=== PATIENT | female | born 1935 | race Asian ===

== ENCOUNTER 2017-05-02 11:39 | Inpatient (IN) | payer OTHER ==
[~2017-05-02] VITALS: Ht 157.5 cm; Wt 44.0 kg
--- NOTE | 2017-05-02 11:39 | NUR ---
PATIENT BIB BLS TO ER BED 5.
[2017-05-02] MEDS ORDERED: NACL 0.9% 1,000 ML IV ONE (11:45)
--- NOTE | 2017-05-02 11:45 | NUR ---
PATIENT BIBA FROM BOARD AND CARE IN [place]. PER EMS STS ROOMMATE CALLED EMS FOR PT WAS FOAMING AT THE MOUTH. PT NOT FOAMING AT THIS TIME. PT AAOX1. PER EMS,; PT ON HOSPICE CARE, PACEMAKER WITH CARDIAC HX AND BILAT BREAST IMPLANTS NOTED. NO FURTHER HX RECEIVED EXCEPT WRITTEN LIST OF MEDS AND NO DNR RETRIEVED PER EMS. WILL CALL BOARD AND CARE FOR MORE INFO.PT ON 02 AT 2 LPM;PT LOOKS WEAK;NO N/V NOTED; SKIN IS PINK/WARM/DRY; AAOX4 WITH EVEN AND STEADY GAIT; NO FEVER, CP AT THIS TIME; PATIENT STATES PAIN OF 0/10 AT THIS TIME; PATIENT POSITIONED FOR COMFORT; HOB ELEVATED; BEDRAILS UP X2; BED DOWN.ALL MONITORS IN PLACED.
[2017-05-02 11:59] VITALS: BP 133/79
[2017-05-02 12:15] LABS: HEMATOCRIT 38.3 % (36-48); HEMOGLOBIN 12.3 g/dL (12.0-16.0); MEAN CORPUSCULAR HEMOGLOBIN 30 pg (27-31); MEAN CORPUSCULAR HGB CONC 32 g/dL (33-37); MEAN CORPUSCULAR VOLUME 93 fL (80-94); PLATELET COUNT (AUTO) 268 K/uL (140-450); RED CELL DISTRIBUTION WIDTH 13.6 % (11.6-13.7); WHITE BLOOD COUNT (AUTO) 20.5 K/uL (4.8-10.8)
--- NOTE | 2017-05-02 12:15 | NUR ---
, NUMBER RECEIVED FROM [facility] PROVIDER PORTAL REGARDING PT. NO ANSWER. PT CONSIDERED FULL CODE AT THIS TIME.
--- NOTE | 2017-05-02 12:15 | NUR ---
PATIENT BEING EVALUATED BY DR. SALAS.
[2017-05-02 12:24] LABS: LYMPHOCYTES % (MANUAL) 6 % (20-46); MONOCYTES % (MANUAL) 2 % (5-12); NEUTROPHILS % (MANUAL) 92 (43-65)
[2017-05-02] MEDS ORDERED: ATI.5 PO (12:26)
[2017-05-02] MEDS ORDERED: DIGO0.1296 PO (12:26)
[2017-05-02] MEDS ORDERED: CLOP75TA PO (12:26)
[2017-05-02] MEDS ORDERED: ISOS60TE PO (12:26)
[2017-05-02] MEDS ORDERED: ACET-3102 PO (12:26)
[2017-05-02] MEDS ORDERED: ZOLP5TAB1 PO (12:26)
[2017-05-02] MEDS ORDERED: DONE5TAB2 PO (12:26)
[2017-05-02] MEDS ORDERED: [UNRECOGNIZED DRUG - CODE] PO (12:26)
[2017-05-02] MEDS ORDERED: VALS80TA2 PO (12:26)
[2017-05-02] MEDS ORDERED: AMLO5TAB PO (12:26)
[2017-05-02] MEDS ORDERED: ATOR20TA PO (12:26)
[2017-05-02] MEDS ORDERED: RISP0.251 PO (12:26)
[2017-05-02] MEDS ORDERED: CARV25TA PO (12:26)
[2017-05-02 12:32] LABS: APPEARANCE,URINE SL CLOUDY (CLEAR); BILIRUBIN,URINE 1+ (NEGATIVE); BLOOD, URINE TRACE-L (NEGATIVE); COLOR,URINE YELLOW (YELLOW); LEUKOCYTE ESTERASE ,URINE NEGATIVE (NEGATIVE); NITRITE, URINE NEGATIVE (NEGATIVE); PROTEIN,URINE 1+ (NEGATIVE); UGLUCOSE 1+ (NEGATIVE); UROBILINOGEN,URINE 0.2 EU/dL (0.2 - 1)
[2017-05-02 12:33] LABS: INR 1.1 (0.8-1.2); PARTIAL THROMBOPLASTIN TIME 23.8 secs (22-35.6); PROTHROMBIN TIME 11.3 secs (10.8-13.4)
[2017-05-02 12:34] LABS: LACTIC ACID 1.5 mmol/L (0.4-2.0)
[2017-05-02 12:37] LABS: ALANINE AMINOTRANSFERASE 40 U/L (14-59); ALBUMIN 2.3 g/dL (3.4-5.0); ALKALINE PHOSPHATASE 99 U/L (46-116); ANION GAP 13.2 (8-16); ASPARTATE AMINOTRANSFERASE 35 U/L (15-37); CALCIUM 9.9 mg/dL (8.5-10.1); CARBON DIOXIDE 27.6 mmol/L (21-32); CHLORIDE 109 mmol/L (98-107); CREATININE 1.4 mg/dL (0.6-1.3); GLUCOSE 188 mg/dL (74-106); POTASSIUM 4.8 mmol/L (3.5-5.1); SODIUM SERUM 145 mmol/L (136-145); TOTAL BILIRUBIN 0.7 mg/dL (0.0-1.0)
[2017-05-02 12:43] LABS: UREA NITROGEN, BLOOD 64 mg/dL (7-18)
--- NOTE | 2017-05-02 12:45 | NUR ---
PT CAREGIVER MELVIN LEVIN, . HX DEMENTIA, PACEMAKER, BILAT IMPLANTS, CARDIAC HX, HTN. PER PCG NO DNR AT THIS TIME, PER MELVIN PT TO BE SENT TO SNF R/T PT UNDER ADULT PROTECTIVE SERVICES UNDER SOCIAL WORK NEERAJ . PER MELVIN, MOLDER HELPER WENT TO SEE PT, CALLED EMS R/T "PT DID NOT LOOK GOOD."
[2017-05-02 12:52] LABS: BACTERIA,URINE None Seen /HPF (None Seen); ICTOTEST NEGATIVE (NEGATIVE); RBC,URINE 0-5 (RARE) /HPF (0-5); SQUAMOUS EPITHELIAL CELL,UR 0-3 (FEW) /LPF (0-3 (FEW)); WBC,URINE 0-5 (RARE) /HPF (0-5)
[2017-05-02] MEDS ORDERED: PIPERACILLIN/TAZOBACTAM 3.375 GM in DEXTROSE 5% 50 ML IV ONE (13:10)
[2017-05-02] MEDS ORDERED: NACL 0.9% IV ONE (13:10)
[2017-05-02] MEDS ORDERED: ASPIRIN 81 MG TAB.CHEW PO ONE (13:10)
[2017-05-02] MEDS ORDERED: ONDANSETRON 4 MG/2 ML VIAL IM/IVP PRN (13:30)
[2017-05-02] MEDS ORDERED: DOCUSATE SODIUM 100 MG GELCAP PO PRN (13:30)
[2017-05-02] MEDS ORDERED: MORPHINE SULFATE 2 MG/ML SYR IVP PRN (13:30)
[2017-05-02] MEDS ORDERED: ACETAMINOPHEN 325 MG TAB PO PRN (13:30)
[2017-05-02] MEDS ORDERED: HYDROcodone/APAP 7.5/325 MG 1 TAB PO PRN (13:30)
--- NOTE | 2017-05-02 13:31 | NUR ---
LAB CALLED THEY WANT TO CHANGE DOSAGE OF ZOSYN TO 2.25MG BECAUSE CREATININE IS 1.4;CHARGE NURSE NOTIFIED;SHE WILL TALKED TO DR SALAS.
[2017-05-02] MEDS ORDERED: PIPER/TAZO 3.375GM/D5W PREMIX 50 ML IV SCH (13:45)
--- NOTE | 2017-05-02 14:01 | NUR ---
Patient will be admitted to care of DR SCHULZ. Admited to TELE. Will go to [facility]. Belongings list completed. Report to ALEXA HAYWARD.
[2017-05-02 14:28] LABS: CHOL/HDL RATIO 3.5 (1-4.5); FREE T4 (FREE THYROXINE) 1.39 ng/dL (0.76-1.46); MAGNESIUM 2.5 mg/dL (1.8-2.4); PHOSPHORUS 3.4 mg/dL (2.5-4.9); THYROID STIMULATING HORMONE 0.21 uIU/mL (0.34-3.74)
--- NOTE | 2017-05-02 14:30 | NUR ---
PT BROUGHT IN FROM ER IN [facility], PT SLEEPING, AROUSES BY VOICE, OX1 -2, PT ABLE TO STATE HER NAME BIRTHDAY AND THAT SHE IS "IN THE HOSPITAL", RESP EVEN UNLABORED ON 2L NC, BS DIMINISHED, + WEAK COUGHS, PT WITH SACRAL WOUND WITH SOME NECROTIC TISSUE, HEALING SORE TO RIGHT HIP, HEALING ABRASION TO R GRANDA, WILL TAKE PHOTO, VSS, PT ORIENTED TO ROOM AND FLOOR, PT WITH R AC 22G PIV NOT FLUSHING, INFILTRATED WHEN FLUSHED, WILL START ANOTHER, CHRISTOPHER INPLACE, DRAINING WELL.
[2017-05-02 14:35] VITALS: BP 148/72
[2017-05-02] MEDS: NACL 0.9% 1,000 ML IV SCH (14:45)
[2017-05-02] MEDS ORDERED: LORazepam 0.5 MG TAB PO PRN (14:55)
[2017-05-02] MEDS ORDERED: CLOPIDOGREL 75 MG TAB PO SCH (15:59)
[2017-05-02] MEDS ORDERED: CARVEDILOL 12.5 MG TAB PO SCH (15:59)
[2017-05-02 16:00] VITALS: BP 144/70
[2017-05-02] MEDS ORDERED: VALSARTAN 80 MG TAB PO SCH (16:04)
--- NOTE | 2017-05-02 16:33 | NUR ---
PREPARATION DEPARTMENT SUPERVISOR MELVIN LEVIN AT BEDSIDE, DR DOW TO BEDSIDE
[2017-05-02] MEDS ORDERED: LACTOBACILLUS RHAMNOSUS GG 1 EACH CAP PO SCH (17:01)
[2017-05-02] MEDS ORDERED: DIGOXIN 0.125 MG TAB PO SCH (17:26)
[2017-05-02] MEDS: PIPER/TAZO 2.25GM/D5W PREMIX 50 ML IV SCH (18:00)
--- NOTE | 2017-05-02 18:10 | NUR ---
PT SITTING UP RESTING COMFORTABLY, PT GUERO PO MEDS CRUSHED WITH PUDDING, PT GUERO CLEAR LIQ WELL WITHOUT PROBLEM.
--- NOTE | 2017-05-02 19:20 | NUR ---
REPORT GIVEN TO ASSEMBLER CATERPILLAR SPIDER RN, PT IN STABLE CONDITION.
--- NOTE | 2017-05-02 19:30 | NUR ---
RECEIVED REPORTS FROM DAY RN, PATIENT RESTING IN BED, AWAKE ALERT ORIENTED X2. NO S/S OF ACUTE DISTRESS NOTED, IV PATENT AND INTACT, INFUSING NORMAL SALINE AT 60ML/HR. NOTED CHRISTOPHER IN PLACE DRAINING YELLOW CLEAR URINE BY GRAVITY. PATIENT IS ABLE TO FOLLOW SIMPLE COMMENDS, PLAN OF CARE DISCUSSED, CALL LIGHT WITHIN REACH, SAFETY MEASURE ENSURED, WILL CONTINUE TO MONITOR.
[2017-05-02 20:00] VITALS: BP 122/68
--- NOTE | 2017-05-02 20:25 | NUR ---
RCV'D ORDER TO INDUCE SPUTUM. PROCEDURE EXPLAINED TO PT WHO IS AWAKE AND ALERT. PT AGREES AND VERBALIZED UNDERSTANDING. INDUCED USING SODIUM CHLORIDE IN HHN. GAVE PT THE SPUTUM CUP AND ASKED PT TO GIVE SAMPLE. PT VERBALIZED UNDERSTANDING BUT UNABLE AT THIS TIME. CUP AT BEDSIDE. ALEXA ESPINOSA.
[2017-05-02] MEDS ORDERED: hePARIN / DEXT 5% PREMIX 250 ML IV SCH ×2 (21:05→21:30)
[2017-05-02] MEDS ORDERED: HEPARIN PER PHARMACY MC PRN (21:05)
[2017-05-02] MEDS: DONEPEZIL 10 MG TAB PO SCH (21:22)
[2017-05-02] MEDS: ZOLPIDEM 5 MG TAB PO SCH (21:22)
[2017-05-02] MEDS: HALOPERIDOL 1 MG TAB PO SCH (21:23)
[2017-05-02] MEDS: ISOSORBIDE MONONITRATE 30 MG TABER PO SCH (21:24)
[2017-05-02] MEDS: ATORVASTATIN 20 MG TAB PO SCH (21:24)
[2017-05-02] MEDS: risperiDONE 1 MG TAB PO SCH (21:24)
--- NOTE | 2017-05-02 23:00 | NUR ---
STARTED HEPARIN DRIP ORDERED
--- NOTE | 2017-05-02 23:05 | NUR ---
HEPARIN BOLUS 2400 UNITS GIVEN, AND STARTED HEPARIN DRIP 500 UNITS/HR. Addendum: 05/03/17 at 0811 by Kelsea Jackson RN JAK MODI
[2017-05-03] VITALS: BP 121/71
[2017-05-03 00:34] LABS: HEMATOCRIT 31.4 % (36-48); MEAN CORPUSCULAR HEMOGLOBIN 30 pg (27-31); MEAN CORPUSCULAR HGB CONC 32 g/dL (33-37); MEAN CORPUSCULAR VOLUME 93 fL (80-94); PLATELET COUNT (AUTO) 217 K/uL (140-450); RED BLOOD CELL COUNT(AUTO) 3.37 MIL/uL (4.20-5.40); RED CELL DISTRIBUTION WIDTH 13.6 % (11.6-13.7)
[2017-05-03] MEDS: PIPER/TAZO 2.25GM/D5W PREMIX 50 ML IV SCH ×4 (01:24→17:13)
[2017-05-03 01:45] LABS: LYMPHOCYTES % (MANUAL) 5 % (20-46); MONOCYTES % (MANUAL) 1 % (5-12); NEUTROPHILS % (MANUAL) 94 (43-65)
[2017-05-03 04:00] VITALS: BP 128/65
--- NOTE | 2017-05-03 04:00 | NUR ---
PATIENT ASLEEP IN BED, EASY TO AROUSE. VITAL SIGNS TAKEN, WITHIN NORMAL RANGE. CALL LIGHT WITHIN REACH, SAFETY MEASURE ENSURED, WILL CONTINUE TO MONITOR.
[2017-05-03] MEDS: NACL 0.9% 1,000 ML IV SCH ×2 (05:25→22:48)
--- NOTE | 2017-05-03 05:53 | NUR ---
PATIENT WAS TRYING TO GET OUT OF THE BED, ASSISTED PATIENT BACK TO BED. SAFETY MEASURE ENSURED, WILL CONTINUE TO MONITOR.
[2017-05-03 06:08] LABS: ANION GAP 12.4 (8-16); CARBON DIOXIDE 27.6 mmol/L (21-32); CHLORIDE 109 mmol/L (98-107); CREATININE 1.3 mg/dL (0.6-1.3); GLUCOSE 211 mg/dL (74-106); SODIUM SERUM 145 mmol/L (136-145); UREA NITROGEN, BLOOD 54 mg/dL (7-18)
--- NOTE | 2017-05-03 06:30 | NUR ---
PATIENT ASLEEP IN BED, NO S/S OF ACUTE DISTRESS NOTED, RESPIRATION EVEN AND UNLABORED, SAFETY MEASURE ENSURED WILL CONTINUE TO MONITOR
[2017-05-03 06:57] LABS: HEMATOCRIT 29.9 % (36-48); HEMOGLOBIN 9.7 g/dL (12.0-16.0); MEAN CORPUSCULAR HEMOGLOBIN 30 pg (27-31); MEAN CORPUSCULAR HGB CONC 33 g/dL (33-37); MEAN CORPUSCULAR VOLUME 93 fL (80-94); PLATELET COUNT (AUTO) 208 K/uL (140-450); RED BLOOD CELL COUNT(AUTO) 3.22 MIL/uL (4.20-5.40); RED CELL DISTRIBUTION WIDTH 13.4 % (11.6-13.7); WHITE BLOOD COUNT (AUTO) 19.9 K/uL (4.8-10.8)
[2017-05-03 07:14] LABS: MAGNESIUM 2.1 mg/dL (1.8-2.4); PHOSPHORUS 2.3 mg/dL (2.5-4.9)
[2017-05-03 07:15] LABS: BAND % (MANUAL) 0 % (0-8); BASOPHILS % (MANUAL) 0 % (0-2); EOSINOPHILS % (MANUAL) 1 % (0-4); LYMPHOCYTES % (MANUAL) 11 % (20-46); MONOCYTES % (MANUAL) 2 % (5-12); NEUTROPHILS % (MANUAL) 86 (43-65); PLATELET ESTIMATE ADEQUATE
[2017-05-03 07:25] LABS: INR 1.1 (0.8-1.2); PARTIAL THROMBOPLASTIN TIME 48.3 secs (22-35.6); PROTHROMBIN TIME 11.6 secs (10.8-13.4)
--- NOTE | 2017-05-03 07:25 | NUR ---
ENDORSED PLAN OF CARE TO DAY RN. PATIENT IS IN STABLE CONDITION.
--- NOTE | 2017-05-03 07:26 | NUR ---
PT AWAKE AND ALERT, NO SIGNS OF ACUTE DISTRESS. ON OXYGEN 2L VIA NC. BOWEL SOUNDS ACTIVE IN ALL 4 QUADRANTS. SACRAL WOUND COVERED WITH DRY DRESSING AND RIGHT ILIAC CREST CLOSED WOUND OPEN TO AIR. BEDBOUND. BOWEL AND BLADDER INCONTINENCE WITH CHRISTOPHER CATHETER IN PLACE. NO COMPLAINT OF PAIN AT THIS TIME, FLACC SCORE IS 0. BED IN LOW POSITION WITH BILATERAL HALF SIDE RAILS UP, CALL LIGHT WITHIN REACH.
[2017-05-03 08:00] VITALS: BP 125/60
--- NOTE | 2017-05-03 08:03 | NUR ---
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
[2017-05-03] MEDS: LACTOBACILLUS RHAMNOSUS GG 1 EACH CAP PO SCH (09:42)
[2017-05-03] MEDS: ISOSORBIDE MONONITRATE 30 MG TABER PO SCH ×2 (09:42→20:59)
[2017-05-03] MEDS: VALSARTAN 80 MG TAB PO SCH (09:43)
[2017-05-03] MEDS: risperiDONE 1 MG TAB PO SCH ×2 (09:43→21:00)
[2017-05-03] MEDS: DIGOXIN 0.125 MG TAB PO SCH (09:43)
[2017-05-03] MEDS: HALOPERIDOL 1 MG TAB PO SCH ×2 (09:43→20:59)
[2017-05-03] MEDS: CLOPIDOGREL 75 MG TAB PO SCH (09:43)
[2017-05-03] MEDS: amLODIPine 5 MG TAB PO SCH (09:44)
[2017-05-03] MEDS: CARVEDILOL 12.5 MG TAB PO SCH ×2 (09:44→17:12)
[2017-05-03] MEDS: CHLORHEXADINE GLUC 2% CLOTH TP SCH (09:45)
[2017-05-03 09:46] LABS: T4 (THYROXINE) 5.1 ug/dL (4.5 - 12.0)
[2017-05-03 12:00] VITALS: BP 118/64
[2017-05-03 13:13] LABS: INR 1.1 (0.8-1.2); PROTHROMBIN TIME 11.3 secs (10.8-13.4)
[2017-05-03 16:00] VITALS: BP 109/61
--- NOTE | 2017-05-03 19:40 | NUR ---
RECEIVED REPORTS FROM DAY RN. PATIENT RESTING IN BED. PATIENT AWAKE, ORIENTED X1. NO S/S OF ACUTE DISTRESS NOTED. IV PATENT AND INTACT, INFUSING NORMAL SALINE AT 60ML/HR. NOTED CHRISTOPHER IN PLACE AND DRAINING URINE BY GRAVITY. BED ALARM ON, AND FALL PRECAUTION MAINTAINED PER HOSPITAL POLICY, CALL LIGHT WITHIN REACH, SAFETY MEASURE ENSURED, WILL CONTINUE TO MONITOR.
[2017-05-03 20:00] VITALS: BP 118/73
[2017-05-03] MEDS: DONEPEZIL 10 MG TAB PO SCH (20:58)
[2017-05-03] MEDS: ZOLPIDEM 5 MG TAB PO SCH (20:58)
[2017-05-03] MEDS: ATORVASTATIN 20 MG TAB PO SCH (21:00)
--- NOTE | 2017-05-03 21:36 | NUR ---
PM MEDICATIONS GIVEN, PATIENT TOLERATED WELL. REPOSITION PATIENT. CALL LIGHT WITHIN REACH, SAFETY MEASURE ENSURED, WILL CONTINUE TO MONITOR.
[2017-05-04] VITALS: BP 122/71
[2017-05-04] MEDS: PIPER/TAZO 2.25GM/D5W PREMIX 50 ML IV SCH ×5 (00:05→23:41)
--- NOTE | 2017-05-04 00:10 | NUR ---
NOTED LT AC IV WAS ON BED, NO ACTIVE BLEEDING AT IV SITE, IV CATHETER TIP INTACT. IV ON THE LT WRIST WAS NOT PATENT EITHER, IV WAS D/C, IV CATHETER TIP INTACT. CHARGE NURSE STARTED NEW IV ON LEFT UPPER ARM. NORMAL SALINE INFUSING AT 60ML/HR.
--- NOTE | 2017-05-04 02:00 | NUR ---
PATIENT WAS TRYING TO PULL THE IV OUT. EDUCATED PATIENT THE IMPORTANCE OF HAVING IV FLUIDS. PATIENT STILL TRIED TO PULL THE IV OUT. OLIVIATENS PUT ON. CHARGE NURSE AWARE, WILL CONTINUE TO MONITOR.
--- NOTE | 2017-05-04 03:29 | NUR ---
PATIENT ASLEEP IN BED, NO S/S OF ACUTE DISTRESS NOTED, RESPIRATION EVEN AND UNLABORED, CALL LIGHT WITHIN REACH, SAFETY MEASURE ENSURED, WILL CONTINUE TO MONITOR.
[2017-05-04 04:00] VITALS: BP 126/72
--- NOTE | 2017-05-04 05:38 | NUR ---
ZOSYN STARTED, REPOSITIONED PATIENT, PATIENT RESTING IN BED, SAFETY MEASURE ENSURED, WILL CONTINUE TO MONITOR.
[2017-05-04 06:44] LABS: HEMATOCRIT 24.2 % (36-48); MEAN CORPUSCULAR HEMOGLOBIN 31 pg (27-31); MEAN CORPUSCULAR HGB CONC 33 g/dL (33-37); MEAN CORPUSCULAR VOLUME 93 fL (80-94); PLATELET COUNT (AUTO) 192 K/uL (140-450); RED BLOOD CELL COUNT(AUTO) 2.61 MIL/uL (4.20-5.40); RED CELL DISTRIBUTION WIDTH 13.5 % (11.6-13.7); WHITE BLOOD COUNT (AUTO) 18.7 K/uL (4.8-10.8)
--- NOTE | 2017-05-04 06:55 | NUR ---
PATIENT HAS BEEN SCREENED AND CATEGORIZED HIGH NUTRITION RISK. PATIENT WILL BE SEEN WITHIN 1-2 DAYS OF ADMISSION. 05/03/17-05/04/17 JORGE SQUIRES MS, RDN
[2017-05-04 06:58] LABS: BAND % (MANUAL) 3 % (0-8); EOSINOPHILS % (MANUAL) 2 % (0-4); LYMPHOCYTES % (MANUAL) 3 % (20-46); MONOCYTES % (MANUAL) 2 % (5-12); NEUTROPHILS % (MANUAL) 90 (43-65)
[2017-05-04 07:03] LABS: ANION GAP 9.6 (8-16); CALCIUM 8.5 mg/dL (8.5-10.1); CARBON DIOXIDE 27.9 mmol/L (21-32); CHLORIDE 110 mmol/L (98-107); CREATININE 1.1 mg/dL (0.6-1.3); GLUCOSE 183 mg/dL (74-106); POTASSIUM 3.5 mmol/L (3.5-5.1); SODIUM SERUM 144 mmol/L (136-145); UREA NITROGEN, BLOOD 38 mg/dL (7-18)
--- NOTE | 2017-05-04 07:19 | NUR ---
ENDORSED PLAN OF CARE TO DAY RN, PATIENT IS IN STABLE CONDITION.
--- NOTE | 2017-05-04 07:20 | NUR ---
PT AWAKE, ALERT AND CONFUSED, NO SIGNS OF ACUTE DISTRESS. ON 2L OXYGEN VIA NC. BOWEL SOUNDS ACTIVE IN ALL 4 QUADRANTS. BOWEL AND BLADDER INCONTINENCE. OPEN WOUND ON SACRUM COVERED WITH DRESSING, CLOSED WOUND ON RT ILIAC HIP OPEN TO AIR, AND BRUISES ON BILATERAL ARMS OPEN TO AIR. BEDBOUND. PATIENT DENIES PAIN AT THIS TIME, ALTHOUGH CONFUSED, FLACC SCORE IS 0. RE-ORIENTED PATIENT TO HOSPITAL AND TO UNIT, PT UNABLE TO COMPREHEND. BED IN LOW POSITION WITH BILATERAL HALF SIDE RAILS UP, CALL LIGHT WITHIN REACH.
[2017-05-04 08:00] VITALS: BP 129/67
[2017-05-04] MEDS: amLODIPine 5 MG TAB PO SCH (09:23)
[2017-05-04] MEDS: LACTOBACILLUS RHAMNOSUS GG 1 EACH CAP PO SCH (09:23)
[2017-05-04] MEDS: risperiDONE 1 MG TAB PO SCH ×2 (09:23→20:58)
[2017-05-04] MEDS: ISOSORBIDE MONONITRATE 30 MG TABER PO SCH ×2 (09:23→20:58)
[2017-05-04] MEDS: VALSARTAN 80 MG TAB PO SCH (09:23)
[2017-05-04] MEDS: CARVEDILOL 12.5 MG TAB PO SCH ×2 (09:24→17:53)
[2017-05-04] MEDS: DIGOXIN 0.125 MG TAB PO SCH (09:24)
[2017-05-04] MEDS: HALOPERIDOL 1 MG TAB PO SCH ×2 (09:24→20:57)
[2017-05-04] MEDS: CLOPIDOGREL 75 MG TAB PO SCH (09:24)
[2017-05-04] MEDS: CHLORHEXADINE GLUC 2% CLOTH TP SCH (09:25)
[2017-05-04] MEDS: MUPIROCIN 2% OINT 22 GM TUBE TP SCH (09:25)
--- NOTE | 2017-05-04 11:00 | NUR ---
CHANGED PATIENT DRESSING ON SACRAL WOUND, MODERATE AMOUNT OF SEROSANGUINOUS DISCHARGE.
--- NOTE | 2017-05-04 11:59 | NUR ---
05/04/17 RD INITIAL ASSESSMENT COMPLETED PLEASE REFER TO NUTRITION ASSESSMENT UNDER CARE ACTIVITY FOR ESTIMATED NUTRITIONAL NEEDS. RD RECOMMENDATIONS: 1. CONTINUE ON CURRENT DIET TOLERATED. 2. RECOMMEND ADDING PROSOURCE 1 PKT WITH ALL MEALS TID. 3. RDN TO PROVIDE HEALTH SHAKE WITH ALL MEALS TID. 4. RD WILL F/U 2-3 DAYS; HIGH RISK. JORGE SQUIRES, MS, RDN
[2017-05-04 12:00] VITALS: BP 121/72
--- NOTE | 2017-05-04 13:16 | NUR ---
PATIENT UNABLE TO PUSH OUT BOWEL MOVEMENT, DIGITALLY DISIMPACTED PATIENT AND ADMINISTERED COLACE PRN ORDERED, WILL CONTINUE TO MONITOR.
[2017-05-04] MEDS: NACL 0.9% 1,000 ML IV SCH (15:28)
[2017-05-04 16:00] VITALS: BP 122/67
--- NOTE | 2017-05-04 16:48 | NUR ---
REPOSITIONED PATIENT AND D/C'D MITTENS, PT SLEEPING. WILL CONTINUE TO MONITOR.
[2017-05-04] MEDS ORDERED: DEXTROSE 50% 50 ML SYR IVP PRN (18:00)
--- NOTE | 2017-05-04 19:15 | NUR ---
PT AWAKE AND ALERT, NO SIGNS OF ACUTE DISTRESS. ENDORSED TO SCHOOL PLANT CONSULTANT NURSE FOR CONTINUITY OF CARE.
--- NOTE | 2017-05-04 19:20 | NUR ---
RECEIVED REPORTS FROM DAY RN. PATIENT RESTING IN BED. PATIENT AWAKE, ORIENTED X1. NO S/S OF ACUTE DISTRESS NOTED. PATIENT IS ON O2 NC 2L. IV PATENT AND INTACT, INFUSING NORMAL SALINE AT 60ML/HR. NOTED CHRISTOPHER IN PLACE AND DRAINING URINE BY GRAVITY. BED ALARM ON, AND FALL PRECAUTION MAINTAINED PER HOSPITAL POLICY, CALL LIGHT WITHIN REACH, SAFETY MEASURE ENSURED, WILL CONTINUE TO MONITOR.
[2017-05-04 20:00] VITALS: BP 115/63
[2017-05-04] MEDS: BLOOD GLUCOSE MONITORING 1 DEV DEV FS SCH (20:54)
[2017-05-04] MEDS: ZOLPIDEM 5 MG TAB PO SCH (20:56)
[2017-05-04] MEDS: DONEPEZIL 10 MG TAB PO SCH (20:57)
[2017-05-04] MEDS: ATORVASTATIN 20 MG TAB PO SCH (20:58)
[2017-05-04] MEDS: INSULIN LISPRO SLIDING SCALE 100 UNITS/ML VIAL SUBQ PRN (21:10)
--- NOTE | 2017-05-04 21:21 | NUR ---
PM MEDICATIONS GIVEN, PATIENT TOLERATED WELL. REPOSITIONED PATIENT. CALL LIGHT WITHIN REACH, SAFETY MEASURE ENSURED, WOUND BED MACHINE IN PLACE. WILL CONTINUE TO MONITOR.
--- NOTE | 2017-05-04 22:05 | NUR ---
PATIENT TRYING TO GET OUT OF THE BED, REPOSITIONED PATIENT BACK TO THE CENTER OF THE BED. SAFETY MEASURE ENSURED, WILL CONTINUE TO MONITOR.
[2017-05-05] VITALS: BP 116/65
--- NOTE | 2017-05-05 00:22 | NUR ---
PATIENT ASLEEP IN BED, NO S/S OF ACUTE DISTRESS NOTED, VITAL SIGNS WITHIN NORMAL RANGE. WILL CONTINUE TO MONITOR.
--- NOTE | 2017-05-05 02:40 | NUR ---
HEARD PATIENT YELLING FROM HER ROOM, "BEDPAN, I WANT BEDPAN." OFFERED PATIENT BEDPAN, BUT PATIENT WAS NOT ABLE TO PUSH THE STOOL OUT, PATIENT WAS CRYING AND STATED,"HURTS." NOTED PATIENT HAD FECAL IMPACTION, DIGITAL REMOVED HARD STOOL, SOFT STOOL CAME OUT AFTER THE HARD STOOL. PATIENT RESTING IN BED, NO S/S OF ACUTE DISTRESS NOTED, CALL LIGHT WITHIN REACH, WILL CONTINUE TO MONITOR.
[2017-05-05 04:00] VITALS: BP 103/54
--- NOTE | 2017-05-05 04:00 | NUR ---
VITAL SIGN TAKEN, WITHIN NORMAL RANGE. WILL CONTINUE TO MONITOR.
[2017-05-05] MEDS: PIPER/TAZO 2.25GM/D5W PREMIX 50 ML IV SCH ×3 (05:22→17:52)
[2017-05-05] MEDS: NACL 0.9% 1,000 ML IV SCH (05:23)
[2017-05-05 05:48] LABS: HEMATOCRIT 25.5 % (36-48); HEMOGLOBIN 8.5 g/dL (12.0-16.0); MEAN CORPUSCULAR HEMOGLOBIN 31 pg (27-31); MEAN CORPUSCULAR HGB CONC 34 g/dL (33-37); MEAN CORPUSCULAR VOLUME 91 fL (80-94); PLATELET COUNT (AUTO) 198 K/uL (140-450); RED BLOOD CELL COUNT(AUTO) 2.79 MIL/uL (4.20-5.40); RED CELL DISTRIBUTION WIDTH 13.2 % (11.6-13.7)
[2017-05-05 06:06] LABS: ANION GAP 9.2 (8-16); CALCIUM 8.5 mg/dL (8.5-10.1); CARBON DIOXIDE 28.3 mmol/L (21-32); CHLORIDE 106 mmol/L (98-107); CREATININE 1.1 mg/dL (0.6-1.3); GLUCOSE 170 mg/dL (74-106); POTASSIUM 3.5 mmol/L (3.5-5.1); SODIUM SERUM 140 mmol/L (136-145); UREA NITROGEN, BLOOD 30 mg/dL (7-18)
[2017-05-05 06:16] LABS: MAGNESIUM 1.5 mg/dL (1.8-2.4); PHOSPHORUS 1.3 mg/dL (2.5-4.9)
[2017-05-05 06:21] LABS: BAND % (MANUAL) 4 % (0-8); LYMPHOCYTES % (MANUAL) 7 % (20-46); MONOCYTES % (MANUAL) 3 % (5-12); NEUTROPHILS % (MANUAL) 86 (43-65)
--- NOTE | 2017-05-05 06:45 | NUR ---
PATIENT ASLEEP IN BED, NO S/S OF ACUTE DISTRESS NOTED, RESPIRATION EVEN AND UNLABORED, WILL CONTINUE TO MONITOR.
[2017-05-05] MEDS: BLOOD GLUCOSE MONITORING 1 DEV DEV FS SCH ×4 (06:56→21:19)
[2017-05-05] MEDS: INSULIN LISPRO SLIDING SCALE 100 UNITS/ML VIAL SUBQ PRN (06:57)
--- NOTE | 2017-05-05 07:30 | NUR ---
ENDORSED PLAN OF CARE TO DAY RN, PATIENT IS IN STABLE CONDITION.
--- NOTE | 2017-05-05 07:31 | NUR ---
PATIENT AWAKE AND ALERT, NO SIGNS OF ACUTE DISTRESS. BOWEL SOUNDS ACTIVE IN ALL 4 QUADRANTS. WOUND ON SACRUM COVERED WITH CLEAN DRESSING, CLOSED WOUND ON RT ILIAC OPEN TO AIR AND BRUISING ON ARMS COMFORT FILLER. BEDBOUND. PATIENT DENIES PAIN, FLACC SCORE = 0. RE-ORIENTED PATIENT TO HOSPITAL AND TO UNIT, PT UNABLE TO COMPREHEND ALTHOUGH VERBALIZES UNDERSTANDING. BED IN LOW POSITION WITH BILATERAL HALF SIDE RAILS UP, CALL LIGHT WITHIN REACH.
[2017-05-05 08:00] VITALS: BP 124/60
[2017-05-05] MEDS ORDERED: MAG SULF 2000 MG/WATER PREMIX 50 ML IV SCH (09:01)
[2017-05-05 09:04] LABS: HEMOGLOBIN A1C 7.6 % (4.8-5.6)
--- NOTE | 2017-05-05 09:48 | NUR ---
SS NOTE: I SPOKE WITH KENJI PICKARD FROM [facility] ([phone]). SHE STATED THAT PT DOES NOT HAVE ANY FAMILY INVOLVED IN HER CARE. SHE ALSO STATED THAT PT IS NOT SAFE TO RETURN TO THE ROOM AND BOARD SINCE PT HAS DECLINED SINCE JANUARY 2017.
[2017-05-05] MEDS: ISOSORBIDE MONONITRATE 30 MG TABER PO SCH ×2 (09:50→21:23)
[2017-05-05] MEDS: risperiDONE 1 MG TAB PO SCH ×2 (09:50→21:22)
[2017-05-05] MEDS: VALSARTAN 80 MG TAB PO SCH (09:50)
[2017-05-05] MEDS: CARVEDILOL 12.5 MG TAB PO SCH ×2 (09:51→17:52)
[2017-05-05] MEDS: DIGOXIN 0.125 MG TAB PO SCH (09:51)
[2017-05-05] MEDS: LACTOBACILLUS RHAMNOSUS GG 1 EACH CAP PO SCH (09:51)
[2017-05-05] MEDS: HALOPERIDOL 1 MG TAB PO SCH ×2 (09:51→21:23)
[2017-05-05] MEDS: amLODIPine 5 MG TAB PO SCH (09:51)
[2017-05-05] MEDS: MUPIROCIN 2% OINT 22 GM TUBE TP SCH (09:53)
[2017-05-05] MEDS: CHLORHEXADINE GLUC 2% CLOTH TP SCH (09:54)
--- NOTE | 2017-05-05 10:00 | NUR ---
PATIENT EXTREMELY GROGGY, AROUSABLE TO STERNAL RUB. SPOKE WITH DR DOW ASKED FOR BS CHECK. BS WAS 114. NO NEW ORDERS AT THIS TIME. WILL CONTINUE TO MONITOR PATIENT.
[2017-05-05] MEDS ORDERED: ALBUTEROL SULFATE/IPRATROPIU 3 ML SOL IH PRN (10:10)
--- NOTE | 2017-05-05 11:51 | NUR ---
PT NOTES TIME [phone] SPOKE W/ RN "TIM" REGARDING PATIENT. PER RN HOLD TX D/T PATIENT HAS LOW BLOOD PRESSURE 78/40. RN STATED PATIENT WILL BE GIVEN BOLUS PER ORDER OF THE DOCTOR. WILL HOLD TX PER RN & PRIMARY THERAPIST NOTIFIED. PVE Addendum: 05/05/17 at 1419 by Sp Banuelos PT PHYSICAL THERAPY CO-SIGN The Physical Therapy Progress Notes documented by Developer Analyst have been reviewed. Reviewed/Co-Signed by: Sp Banuelos PT Documentation Done by: FOSTER GREER QUALITY AUDIT REPRESENTATIVE ON MEDICAL HOLD FOR TODAY D/T HYPOTENSION WILL CHECK CHART TOMORROW IF PT MEDICAL CLEARED FOR P.T.
[2017-05-05 12:00] VITALS: BP 112/60
--- NOTE | 2017-05-05 12:30 | NUR ---
SS NOTE: PER ASTRID FROM [facility] ([phone]), THEY CAN ACCEPT PT AND PT CAN GO TO ROOM 103B UNDER DR. Wade DOMINGO WHEN PT IS READY FOR DISCHARGE.
[2017-05-05 16:00] VITALS: BP 105/58
[2017-05-05] MEDS: ALBUTEROL SULFATE/IPRATROPIU 3 ML SOL IH SCH (19:08)
--- NOTE | 2017-05-05 19:35 | NUR ---
PT AWAKE AND ALERT, NO SIGNS OF ACUTE DISTRESS. ENDORSED TO RACE STEWARD NURSE FOR CONTINUITY OF CARE.
--- NOTE | 2017-05-05 20:21 | NUR ---
RECEIVED REPORT FROM CHARGE NURSE AWAKE AND ALERT. NO RESTLESSNESS NOTED. TOTAL CARE. CALL LIGHT WITH IN REACH. NO SOB. CHRISTOPHER CATHETER IN PLACE AND DX. OF DEHYDRATION AND LEUKOCYTOSIS. NEEDS WILL BE ANTICIPATED AND WILL BE TURNED Q 2H.
[2017-05-05 20:44] VITALS: BP 112/73
[2017-05-05] MEDS: DONEPEZIL 10 MG TAB PO SCH (21:22)
[2017-05-05] MEDS: ZOLPIDEM 5 MG TAB PO SCH (21:22)
[2017-05-05] MEDS: ATORVASTATIN 20 MG TAB PO SCH (21:23)
--- NOTE | 2017-05-05 22:00 | NUR ---
TURNED TO SIDES . TOTAL CARE. NO SOB. FLACC 0-. PILLOW SUPPORT TO PRESSURE AREAS. TELEMETRY MONITORING. NO COUGHING NOTED. HOB SLIGHTLY HIGH FOR MAXIMUM LUNG EXPANSION. CHRISTOPHER CATHETER DRAINING WELL WITH YELLOW URINE.
--- NOTE | 2017-05-06 | NUR ---
TURNED TO SIDES BY CNAS. PILLLOW SUPPORT TO PRESSURE AREAS. NO SOB. FLACC 0-TELEMETRY MONITORING.
[2017-05-06] MEDS: PIPER/TAZO 2.25GM/D5W PREMIX 50 ML IV SCH ×3 (00:33→11:25)
[2017-05-06] MEDS: NACL 0.9% 1,000 ML IV SCH (00:34)
[2017-05-06 00:59] VITALS: BP 122/58
--- NOTE | 2017-05-06 02:00 | NUR ---
TURNED TO SIDES Q 2H. NEEDS ANTICIPATED AND WILL BE MET. FLACC 0- SLEEPING. OPENS EYES WHEN TOUCHED.
[2017-05-06 04:28] VITALS: BP 112/64
--- NOTE | 2017-05-06 04:33 | NUR ---
TURNED Q 2H. PILLOW SUPPORT TO PRESSURE AREAS. TOTAL CARE. NO SOB. ON 02 AT 2LPM/NC. AFEBRILE.
[2017-05-06] MEDS: BLOOD GLUCOSE MONITORING 1 DEV DEV FS SCH ×2 (05:37→11:34)
[2017-05-06] MEDS: INSULIN LISPRO SLIDING SCALE 100 UNITS/ML VIAL SUBQ PRN ×2 (05:40→12:10)
[2017-05-06 07:09] LABS: BASOPHILS % (AUTO) 0.3 % (0.0-2.0); EOSINOPHILS # (AUTO) 0.4 K/uL (0-0.4); EOSINOPHILS % (AUTO) 2.6 % (0.0-4.0); HEMATOCRIT 22.8 % (36-48); HEMOGLOBIN 7.4 g/dL (12.0-16.0); LYMPHOCYTES % (AUTO) 6.8 % (20.5-51.1); MEAN CORPUSCULAR HEMOGLOBIN 30 pg (27-31); MEAN CORPUSCULAR HGB CONC 33 g/dL (33-37); MEAN CORPUSCULAR VOLUME 91 fL (80-94); MONOCYTES # (AUTO) 0.7 K/uL (0.8-1.0); MONOCYTES % (AUTO) 4.8 % (1.7-9.3); NEUTROPHILS # (AUTO) 12.7 K/uL (1.8-7.7); NEUTROPHILS % (AUTO) 85.5 % (42.2-75.2); PLATELET COUNT (AUTO) 179 K/uL (140-450); RED CELL DISTRIBUTION WIDTH 12.9 % (11.6-13.7)
[2017-05-06] MEDS: ALBUTEROL SULFATE/IPRATROPIU 3 ML SOL IH SCH (07:13)
--- NOTE | 2017-05-06 07:15 | NUR ---
RECEIVED REPORT FROM NIGHT NURSE, PT IS AAOX1, ON ROOM AIR, IV TO LEFT UPPER ARM 20G INFUSING WELL, SACRAL WOUND , RIGHT HIP SCAB, CHRISTOPHER IN PLACE WITH CLEAR YELLOW URINE, INITIAL ASSESSMENT COMPLETED, REVIEWED PLAN OF CARE WITH PT REENFORCEMENT NEEDED, ALL SAFETY PRECAUTIONS MET. CALL LIGHT WITHIN REACH. WILL CONTINUE TO MONITOR.
[2017-05-06 07:16] LABS: CALCIUM 7.9 mg/dL (8.5-10.1); CARBON DIOXIDE 27.3 mmol/L (21-32); CHLORIDE 107 mmol/L (98-107); CREATININE 1.1 mg/dL (0.6-1.3); GLUCOSE 183 mg/dL (74-106); POTASSIUM 3.3 mmol/L (3.5-5.1); SODIUM SERUM 139 mmol/L (136-145); UREA NITROGEN, BLOOD 30 mg/dL (7-18)
[2017-05-06 07:19] LABS: WHITE BLOOD COUNT (AUTO) 14.8 K/uL (4.8-10.8)
[2017-05-06 07:20] LABS: MAGNESIUM 1.9 mg/dL (1.8-2.4); PHOSPHORUS 2.3 mg/dL (2.5-4.9)
[2017-05-06 08:00] VITALS: BP 118/64
[2017-05-06] MEDS: CARVEDILOL 12.5 MG TAB PO SCH (08:00)
[2017-05-06] MEDS ORDERED: KCL 20 MEQ/WATER INJ PREMIX 100 ML IV SCH (09:00)
[2017-05-06] MEDS: amLODIPine 5 MG TAB PO SCH (09:00)
[2017-05-06] MEDS: HALOPERIDOL 1 MG TAB PO SCH (09:18)
[2017-05-06] MEDS: DIGOXIN 0.125 MG TAB PO SCH (09:18)
[2017-05-06] MEDS: LACTOBACILLUS RHAMNOSUS GG 1 EACH CAP PO SCH (09:18)
[2017-05-06] MEDS: ISOSORBIDE MONONITRATE 30 MG TABER PO SCH (09:19)
[2017-05-06] MEDS: VALSARTAN 80 MG TAB PO SCH (09:19)
[2017-05-06] MEDS: risperiDONE 1 MG TAB PO SCH (09:19)
[2017-05-06] MEDS: MUPIROCIN 2% OINT 22 GM TUBE TP SCH (09:20)
[2017-05-06] MEDS: CHLORHEXADINE GLUC 2% CLOTH TP SCH (09:20)
--- NOTE | 2017-05-06 09:25 | NUR ---
DUE MEDICATION GIVEN WITH APPLE SAUCE, PT TOLERATED WELL. ALL NEED MET WILL CONTINUE TO MONITOR.
[2017-05-06] MEDS ORDERED: PIPE50SO5 IV (10:08)
[2017-05-06] MEDS ORDERED: LACT10CA PO ×2 (10:15→10:16)
--- NOTE | 2017-05-06 11:34 | NUR ---
DUE MEDICATION GIVEN. PT CURRENTLY AWAKE RESTING IN BED. ALL SAFETY PRECAUTION MET. WILL CONTINUE TO MONITOR
[2017-05-06 12:18] LABS: BASOPHILS # (AUTO) 0.1 K/uL (0.00-0.22); BASOPHILS % (AUTO) 0.4 % (0.0-2.0); EOSINOPHILS # (AUTO) 0.4 K/uL (0-0.4); EOSINOPHILS % (AUTO) 2.5 % (0.0-4.0); HEMATOCRIT 25.1 % (36-48); HEMOGLOBIN 8.2 g/dL (12.0-16.0); LYMPHOCYTES # (AUTO) 0.9 K/uL (2.5-16.5); LYMPHOCYTES % (AUTO) 5.7 % (20.5-51.1); MEAN CORPUSCULAR HEMOGLOBIN 30 pg (27-31); MEAN CORPUSCULAR HGB CONC 33 g/dL (33-37); MEAN CORPUSCULAR VOLUME 92 fL (80-94); MONOCYTES # (AUTO) 0.6 K/uL (0.8-1.0); MONOCYTES % (AUTO) 3.9 % (1.7-9.3); NEUTROPHILS # (AUTO) 14.4 K/uL (1.8-7.7); NEUTROPHILS % (AUTO) 87.5 % (42.2-75.2); PLATELET COUNT (AUTO) 205 K/uL (140-450); RED BLOOD CELL COUNT(AUTO) 2.74 MIL/uL (4.20-5.40)
[2017-05-06 12:27] VITALS: BP 126/71
--- NOTE | 2017-05-06 12:45 | NUR ---
UPDATED PT ON TRANSFER PLAN TO [facility]. REENFORCEMENT NEEDED.
[2017-05-06 12:48] LABS: WHITE BLOOD COUNT (AUTO) 16.4 K/uL (4.8-10.8)
--- NOTE | 2017-05-06 13:14 | NUR ---
REPORT GIVEN TO CARROL AT [facility].
--- NOTE | 2017-05-06 13:16 | NUR ---
1235 CALL PLACED TO [facility] [phone] AND SPOKE WITH KIA AND SET UP [facility]UR[facility] TRANSPORT FOR PT GOING TO [facility]. [facility] AUTH NUMBER [id number]. INKER TIME WILL BE 1:30PM. NURSE CLARK INFORMED OF INKER TIME.
--- NOTE | 2017-05-06 13:35 | NUR ---
PT UNABLE TO SIGN DISCHARGE PAPERWORK, DISCHARGE EDUCATION GIVEN, WOUND PICTURES TAKE, ID BANDS REMOVED. ALL PERSONAL BELONGINGS WITH PT.
--- NOTE | 2017-05-06 13:46 | NUR ---
[facility] IN TO [facility] PT, PT TRANSFERRED TO [place] IN STABLE CONDITION.
--- NOTE | 2017-05-06 16:18 | NUR ---
PHYSICAL THERAPY CO-SIGN The Physical Therapy Progress Notes documented by Manager Audio have been reviewed. Reviewed/Co-Signed by: Sarah Paul PT Documentation Done by:FOSTER GREER STUDIO MUSICIAN POC REVIEWED W/ STUDIO MUSICIAN; WILL BENEFIT W/ P.T. AFTER ACUTE STAY. Addendum: 05/06/17 at 1618 by Sarah Paul PT Amended: Links added.
== END 2017-05-06 13:45 | DRG 177 ==
LOC: MED 11:39 → MTU 13:49
PROVIDERS: ADMIT Student in an Organized Health Care Education/Training Program; ATTEND Student in an Organized Health Care Education/Training Program
DX: J69.0 Pneumonitis due to inhalation of food and vomit (principal); I50.43 Acute on chronic combined systolic (congestive) and diastolic (congestive) heart failure; N17.0 Acute kidney failure with tubular necrosis; E43 Unspecified severe protein-calorie malnutrition; G93.41 Metabolic encephalopathy; K92.2 Gastrointestinal hemorrhage, unspecified; Z68.1 Body mass index [BMI] 19.9 or less, adult; D68.59 Other primary thrombophilia; I42.0 Dilated cardiomyopathy; R82.1 Myoglobinuria; E03.9 Hypothyroidism, unspecified; E86.0 Dehydration; E87.8 Other disorders of electrolyte and fluid balance, not elsewhere classified; I25.10 Atherosclerotic heart disease of native coronary artery without angina pectoris; D72.829 Elevated white blood cell count, unspecified; F41.9 Anxiety disorder, unspecified; F03.90 Unspecified dementia, unspecified severity, without behavioral disturbance, psychotic disturbance, mood disturbance, and anxiety; Z60.2 Problems related to living alone; E11.65 Type 2 diabetes mellitus with hyperglycemia; L89.151 Pressure ulcer of sacral region, stage 1; E83.39 Other disorders of phosphorus metabolism; I27.2 Other secondary pulmonary hypertension; I13.10 Hypertensive heart and chronic kidney disease without heart failure, with stage 1 through stage 4 chronic kidney disease, or unspecified chronic kidney disease; E11.22 Type 2 diabetes mellitus with diabetic chronic kidney disease; E83.42 Hypomagnesemia; N18.9 Chronic kidney disease, unspecified; Z71.3 Dietary counseling and surveillance; Z95.0 Presence of cardiac pacemaker; Z79.899 Other long term (current) drug therapy; Z98.82 Breast implant status; Z22.322 Carrier or suspected carrier of Methicillin resistant Staphylococcus aureus; Z74.01 Bed confinement status
CPT/HCPCS: 36415; 71010; 80048; 80053; 80162; 81001; 82150; 82550; 82948; 83036; 83605; 83615; 83690; 83735; 83880; 84100; 84436; 84439; 84443; 84479; 84484; 85025; 85610; 85730; 87040; 87081; 87086; 87205; 93005; 93925; 93970; 94640; 97110; 97116; 97140; 97530; 99285; J1644; J1815; J2543; J3475; J3480; J7030; J7620; Q0092